=== PATIENT | male | born 1955 | race Caucasian/White ===

== ENCOUNTER 2022-09-14 13:32 | Emergency (ER) | payer MEDICARE, SELFPAY ==
[2022-09-14 13:42] VITALS: BP 106/62; PULSE 74; RESP 16; TEMP 36.7; O2SAT 93; BMI 28.8
--- NOTE | 2022-09-14 14:54 | XRR_ITS ---
PROCEDURE INFORMATION: Exam: XR Right Hand Exam date and time: 09/14/2022 2:06 PM Age: 67 years old Clinical indication: Swelling; Hand; Right; Additional info: Nodules joint pain swelling TECHNIQUE: Imaging protocol: Radiologic exam of the right hand. Views: 1 or 2 views. COMPARISON: No relevant prior studies available. FINDINGS: Bones/joints: Osseous structures are intact. Negative for fracture. 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 Soft tissues: Normal. XR/XR hand RT 2V [id number] IMPRESSION: No acute findings.
--- NOTE | 2022-09-14 14:54 | XRR_ITS ---
PROCEDURE INFORMATION: Exam: XR Left Hand Exam date and time: 09/14/2022 2:08 PM Age: 67 years old Clinical indication: Swelling; Hand; Left; Additional info: Nodules joint pain swelling TECHNIQUE: Imaging protocol: Radiologic exam of the left hand. Views: 1 or 2 views. COMPARISON: No relevant prior studies available. FINDINGS: Bones/joints: Osseous structures are intact. Negative for fracture. [id number] DJD of the PIP and DIP joint spaces as well as the base of the thumb. Soft tissues: Normal. XR/XR hand LT 2V [id number] IMPRESSION: No acute findings.
--- NOTE | 2022-09-14 14:56 | W.ED.EXTPRO ---
HPI - Extremity Problem General: Chief complaint: Extremity Injury, Upper Stated complaint: weak Time Seen by Provider: 09/14/22 14:31 History of Present Illness: Patient presents to the ER with complaints of bilateral hand pain and weakness. Bilateral shoulder and knee pain x6 to 8 weeks. Patient went to the urgent care earlier today and they sent him here due to them wanting him to have blood work done. Patient denies any known trauma. Patient only known medication changes was an increase in Lipitor from 40-80 back in May. Patient has no history of rheumatoid arthritis MD Complaint: extremity pain, joint swelling and joint pain PFSH ED PFSH: Social History Smoking and tobacco status: current every day smoker Alcohol intake: never Substance/Drug Use: never Physical Exam Const: COMMON NORMALS: no acute distress, average body habitus, patient oriented x3, no limitations, healthy appearing, alert and well nourished HENMT: COMMON NORMALS: normocephalic, atraumatic, hearing grossly normal bilaterally, external ears normal, Normal external nose present and moist oral mucous membranes HEAD & SCALP: normocephalic and atraumatic NOSE: Normal external nose present EXTERNAL EAR: Yes external ears normal Eye: COMMON NORMALS: Equal, round and reactive pupils present, EOMs intact bilaterally, conjunctivae normal and no scleral icterus CONJUNCTIVA: Yes conjunctivae normal PUPIL: Yes Equal, round and reactive pupils present Neck/C-Spine: COMMON NORMALS: full ROM, no lymphadenopathy, supple, no meningeal signs, no JVD and Thyroid normal THYROID: Thyroid normal Lymph: LYMPHATIC: no lymphadenopathy noted Chest: COMMONS NORMALS: normal inspection of the chest and normal palpation of entire chest wall Resp: COMMON NORMALS: normal respiratory effort, No retractions, No use of accessory muscles and clear to auscultation bilaterally AUSCULTATION: clear to auscultation bilaterally Cardio: COMMON NORMALS: no JVD, regular rate, regular rhythm, S1 normal heart sound present, S2 normal heart sound present, No gallops present (Cardio), No clicks present (Cardio), No murmurs present (Cardio) and No rub (Cardio) RATE: regular rate RHYTHM: regular rhythm HEART SOUNDS: S1 normal heart sound present and S2 normal heart sound present GI: COMMON NORMALS: Normal to inspection, nondistended, normoactive bowel sounds present, Soft to palpation, non-tender, No hepatosplenomegaly present and no masses PALPATION: Yes Soft to palpation and Yes No hepatosplenomegaly present : COMMON NORMALS: Yes no CVA tenderness BLADDER/KIDNEY EXAM: Yes no CVA tenderness Back/Pelvis: COMMON NORMALS: no CVA tenderness Extremity: NARRATIVE EXTREMITY EXAM: Bilateral hand swelling this with nodules over joints. Neuro: COMMON NORMALS: patient oriented x3 SENSORIUM/ORIENTATION: Yes alert MENINGEAL SIGNS: Yes no meningeal signs Course Vital Signs: Vital signs: Vital Signs Temperature 98.0 F 09/14/22 13:42 Pulse Rate 74 09/14/22 13:42 Respiratory Rate 17 09/14/22 16:27 Blood Pressure 106/62 09/14/22 13:42 Pulse Oximetry 93 09/14/22 13:42 Oxygen Delivery Me thod Room Air 09/14/22 13:42 MDM - Extremity (Nontraumatic) Medical Decision Making Patient presents with joint pain and weakness. This is predominantly in his small joints of his hands. Patient did increase his Lipitor to 80 mg several months ago. Physical exam was performed lab work was obtained which revealed a white count slightly elevated at 12.8 and elevated sed rate and CRP, urinalysis was benign, bilateral x-ray of the hands showed no acute findings just moderate to severe arthritis. These findings was explained in detail to the patient and his family. I did suggest follow-up with his PCP in the next 1 to 2 weeks for further work-up concerning the hand pain with such labs as rheumatoid arthritis panels. Differential Diagnosis Unlikely herpes zoster, gout, cellulitis, superficial thrombophlebitis, deep venous thrombosis of upper extremity, lower extremity edema or deep vein thrombosis of lower extremity Medical Records I reviewed the patient's medical records. Lab Data I reviewed the patient's lab results. 09/14/22 15:54 09/14/22 15:54 Radiology Impressions Hand X-Ray 09/14/22 14:54 IMPRESSION: No acute findings. Laboratory Results WBC 12.8 10^3/uL (4.0-10.0) H 09/14/22 15:54 RBC 4.65 10^6/uL (4.1-5.3) 09/14/22 15:54 Hgb 13.3 g/dL (11.7-16.6) 09/14/22 15:54 Hct 41.1 % (42.0-52.0) L 09/14/22 15:54 MCV 88.4 fl (80-94) 09/14/22 15:54 MCH 28.6 pg (28.0-34.0) 09/14/22 15:54 MCHC 32.4 g/dL (30.0-36.0) 09/14/22 15:54 RDW 13.2 % (12.1-15.1) 09/14/22 15:54 Plt Count 250 10^3/cmm (130-400) 09/14/22 15:54 MPV 10.7 fL (7.4-10.4) H 09/14/22 15:54 Neut % (Auto) 88.2 % 09/14/22 15:54 Lymph % (Auto) 6.4 % 09/14/22 15:54 [place] % (Auto) 4.5 % 09/14/22 15:54 Eos % (Auto) 0.3 % 09/14/22 15:54 Baso % (Auto) 0.2 % 09/14/22 15:54 Neut # (Auto) 11.26 10^3/uL (1.8-7.7) H 09/14/22 15:54 Lymph # (Auto) 0.8 10^3/uL (0.8-4.8) 09/14/22 15:54 [place] # (Auto) 0.6 10^3/uL (0.2-0.9) 09/14/22 15:54 Eos # (Auto) 0.0 10^3/uL (0.0-0.8) 09/14/22 15:54 Baso # (Auto) 0.0 10^3/uL (0.0-0.1) 09/14/22 15:54 Nucleated RBC % (auto) 0 % 09/14/22 15:54 Nucleated RBCs # 0.0 /100WBC 09/14/22 15:54 ESR 45 mm/hr (0-10) H 09/14/22 15:54 Sodium 140 mmol/L (136-145) 09/14/22 15:54 Potassium 3.7 mmol/L (3.5-5.1) 09/14/22 15:54 Chloride 102 mmol/L (98-107) 09/14/22 15:54 Carbon Dioxide 27 mmol/L (22-29) 09/14/22 15:54 Anion Gap 14.7 (5-19) 09/14/22 15:54 BUN 26 mg/dL (8-23) H 09/14/22 15:54 Creatinine 1.1 mg/dL (0.7-1.2) 09/14/22 15:54 GFR Calculation 66.8 mL/min (90-130) L 09/14/22 15:54 Glucose 116 mg/dL (65-115) H 09/14/22 15:54 Calculated Osmolality 296 mOsm/kg (285-295) H 09/14/22 15:54 Calcium 8.7 mg/dL (8.5-10.5) 09/14/22 15:54 Total Bilirubin 0.7 mg/dL (0.15-1.2) 09/14/22 15:54 AST 15 U/L (0-40) 09/14/22 15:54 ALT 17 U/L (0-41) 09/14/22 15:54 Alkaline Phosphatase 136 U/L (40-130) H 09/14/22 15:54 Creatine Kinase 42 U/L (39-308) 09/14/22 15:54 C-Reactive Protein 40.2 mg/L (0.0-4.9) H 09/14/22 15:54 Total Protein 6.7 g/dL (6.6-8.7) 09/14/22 15:54 Albumin 3.3 g/dL (3.5-5.2) L 09/14/22 15:54 Globulin 3.4 g/dL (1.3-4.6) 09/14/22 15:54 Urine Color Juliane (Yellow) 09/14/22 16:15 Urine Appearance Cloudy (CLEAR) A 09/14/22 16:15 Urine pH 5 (5-7) 09/14/22 16:15 Ur Specific [place]le 1.020 (1.005-1.030) 09/14/22 16:15 Urine Protein 1+ (Negative) H 09/14/22 16:15 Urine Glucose (UA) Norm (Normal) 09/14/22 16:15 Urine Ketones Negative (Negative) 09/14/22 16:15 Urine Blood Neg (Negative) 09/14/22 16:15 Urine Nitrate Negative (Negative) 09/14/22 16:15 Urine Bilirubin 1+ (Negative) H 09/14/22 16:15 Urine Urobilinogen 1 mg/dL (Negative) H 09/14/22 16:15 Ur Leukocyte Esterase Negative (Negative) 09/14/22 16:15 Urine RBC 0-4 /hpf (0-2) H 09/14/22 16:15 Urine WBC 5-10 /hpf (0-5) H 09/14/22 16:15 Ur Squamous Epith Cells 0-4 /hpf (0-5) H 09/14/22 16:15 Amorphous Sediment 1+ /hpf 09/14/22 16:15 Urine Bacteria 1+ /hpf (NONE) H 09/14/22 16:15 Urine Mucus 2+ /hpf 09/14/22 16:15 Discharge Plan Discharge Patient Disposition: Home Clinical Impression: Arthritis pain, hand, Generalized muscle weakness Condition: Stable Prescriptions: No Action atorvastatin 80 mg tablet 80 mg PO DAILY amlodipine 10 mg tablet 10 mg PO DAILY bisoprolol fumarate 5 mg tablet 5 mg PO DAILY glipizide 10 mg tablet 10 mg PO DAILY clopidogrel 75 mg tablet 75 mg PO DAILY losartan 100 mg tablet 100 mg PO DAILY hydrochlorothiazide 25 mg tablet 25 mg PO DAILY Levemir FlexPen 100 unit/mL (3 mL) insulin pen 30 unit SUBCUT DAILY Trulicity 1.5 mg/0.5 mL pen injector 1.5 mg SUBCUT Q7D Rx Instructions: ON WEDNESDAY multivitamin Tablet 1 tab PO DAILY aspirin 325 mg tablet 325 mg PO DAILY acetaminophen [Tylenol Extra Strength] 500 mg tablet 1,000 mg PO Q6H PRN (Reason: Pain) Nitrostat 0.4 mg Tablet, Sublingual 0.4 mg SUBLINGUAL Q5M PRN (Reason: Chest Pain) Rx Instructions: do not exceed 3 doses per episode Discharge Orders: Discharge ED (Routine); Ordered 09/14/22 Ordered By: Tom Luna Referrals: Akhil Abrams [Primary Care Provider] - Patient Instructions: Arthritis (ED), Weakness (Generalized) Activity Restrictions/Additional Instructions: The test performed in ER today were nonspecific. Your inflammatory markers were elevated and your hand x-ray showed arthritic changes. Please follow-up with your family practice doctor within next 1 to 2 weeks for further work-up as needed. 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
[2022-09-14 15:59] LABS: Basophils % 0.2 %; Eosinophils % 0.3 %; Hematocrit 41.1 % (42.0-52.0); Hemoglobin 13.3 g/dL (11.7-16.6); Lymphocytes # 0.8 10^3/uL (0.8-4.8); Lymphocytes % 6.4 %; Mean Corpuscular HGB Conc 32.4 g/dL (30.0-36.0); Mean Corpuscular Hemoglobin 28.6 pg (28.0-34.0); Mean Corpuscular Volume 88.4 fl (80-94); Mean Platelet Volume 10.7 fL (7.4-10.4); Monocytes # 0.6 10^3/uL (0.2-0.9); Monocytes % 4.5 %; Neutrophils # 11.26 10^3/uL (1.8-7.7); Neutrophils % 88.2 %; Nucleated Red Blood Cells % 0 %; Platelet Count 250 10^3/cmm (130-400); Red Blood Count 4.65 10^6/uL (4.1-5.3); Red Cell Distribution Width 13.2 % (12.1-15.1); White Blood Count 12.8 10^3/uL (4.0-10.0)
[2022-09-14 16:26] LABS: Alanine Aminotransferase 17 U/L (0-41); Albumin Level 3.3 g/dL (3.5-5.2); Alkaline Phosphatase 136 U/L (40-130); Anion Gap 14.7 (5-19); Aspartate Amino Transferase 15 U/L (0-40); Blood Urea Nitrogen 26 mg/dL (8-23); C Reactive Protein 40.2 mg/L (0.0-4.9); Calcium 8.7 mg/dL (8.5-10.5); Carbon Dioxide 27 mmol/L (22-29); Chloride 102 mmol/L (98-107); Creatine Phosphokinase 42 U/L (39-308); Globulin 3.4 g/dL (1.3-4.6); Glomerular Filtration Rate 66.8 mL/min (90-130); Glucose 116 mg/dL (65-115); Osmolality Calculated 296 mOsm/kg (285-295); Potassium 3.7 mmol/L (3.5-5.1); Sodium 140 mmol/L (136-145); Total Bilirubin 0.7 mg/dL (0.15-1.2); Total Protein 6.7 g/dL (6.6-8.7)
[2022-09-14 16:27] VITALS: RESP 17
[2022-09-14 16:42] LABS: Erythrocyte Sedimentation Rate 45 mm/hr (0-10)
[2022-09-14 17:12] LABS: Add Urine Microscopic? YES; Urine Appearance Cloudy (CLEAR); Urine Color Amber (Yellow)
[2022-09-14 17:35] LABS: Amorphous Sediment Urine 1+ /hpf; Bacteria Urine 1+ /hpf; Bilirubin Urine 1+ (Negative); Blood Urine Neg (Negative); Glucose Urine UA Norm (Normal); Ketones Urine Negative (Negative); Leukocyte Esterase Urine Negative (Negative); Mucus Urine 2+ /hpf; Nitrate Urine Negative (Negative); Protein Urine 1+ (Negative); RBC Urine 0-4 /hpf (0-2); Squamous Epithelial Cell Urine 0-4 /hpf (0-5); Urobilinogen Urine 1 mg/dL (Negative); pH Urine 5 (5-7)
== END 2022-09-14 17:50 | disposition home or self-care (01) ==
PROVIDERS: Emergency Provider Emergency Medicine; PCP Family Medicine
DX: M19.042 Primary osteoarthritis, left hand (principal); M19.041 Primary osteoarthritis, right hand; R53.1 Weakness; Z79.84 Long term (current) use of oral hypoglycemic drugs; Z79.02 Long term (current) use of antithrombotics/antiplatelets; Z79.85 Long-term (current) use of injectable non-insulin antidiabetic drugs; Z79.4 Long term (current) use of insulin; Z79.82 Long term (current) use of aspirin; F17.210 Nicotine dependence, cigarettes, uncomplicated
CPT/HCPCS: 36415; 73120; 80053; 81001; 82550; 85025; 85651; 86140; 99284

== ENCOUNTER → 2023-01-19 10:55 | Outpatient (BNVA) | payer MEDICARE, SELFPAY | PROVIDERS: PCP Family Medicine; Visit Provider Podiatrist Foot & Ankle Surgery | DX: E11.42 Type 2 diabetes mellitus with diabetic polyneuropathy (principal); L60.3 Nail dystrophy; I73.9 Peripheral vascular disease, unspecified; Z79.4 Long term (current) use of insulin | CPT/HCPCS: 11721; 99203 ==